=== PATIENT | male | born 1955 | race Caucasian/White ===

== ENCOUNTER 2020-11-23 00:03 | Emergency (ER) | payer OTHER, SELFPAY ==
[2020-11-23 00:36] VITALS: BP 180/73; BP 186/72; PULSE 74; PULSE 82; RESP 18; TEMP 37.2; O2SAT 96; O2SAT 98; BMI 24.7
[2020-11-23 00:37] VITALS: BP 167/65; PULSE 75; RESP 18; TEMP 37.2; O2SAT 97
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
[2020-11-23 00:55] LABS: Glucose, Whole Blood 226 mg/dL (60-115)
[2020-11-23 00:55] LABS: Glucose Urine UA 250 MG/DL (NEG); Leukocyte Esterase Urine NEG (NEG); Nitrite Urine NEG (NEG); Specific Gravity - Urine 1.015 (1.005-1.025); Urine Blood TRACE (NEG); Urine Ketones NEG (NEG); Urine Protein 2+ MG/DL (NEG-TRACE)
[2020-11-23 00:58] LABS: Appearance Urine CLEAR; Color Urine YELLOW
[2020-11-23 01:10] LABS: Hyaline Casts Urine 0-2 /LPF; Mucus Urine 1+ /LPF; RBC Urine 0-2 /HPF (0); Squamous Epithelial Cell Urine 1+ /LPF; WBC Urine 0-2 /HPF (0-4)
[2020-11-23 01:31] VITALS: BP 166/66; PULSE 75; RESP 17; TEMP 36.9; O2SAT 98
[2020-11-23] MEDS: Tamsulosin HCL 0.4 MG CAPSULE PO (01:32)
== END 2020-11-23 01:35 | disposition home or self-care (01) ==
PROVIDERS: Emergency Provider Internal Medicine
DX: N40.0 Benign prostatic hyperplasia without lower urinary tract symptoms (principal); E11.65 Type 2 diabetes mellitus with hyperglycemia; Z79.4 Long term (current) use of insulin; E11.22 Type 2 diabetes mellitus with diabetic chronic kidney disease; I12.9 Hypertensive chronic kidney disease with stage 1 through stage 4 chronic kidney disease, or unspecified chronic kidney disease; N18.9 Chronic kidney disease, unspecified; F17.200 Nicotine dependence, unspecified, uncomplicated
CPT/HCPCS: 81001; 82947; 99283; 99284

== ENCOUNTER → 2020-11-27 08:42 | Outpatient (BNVA) | payer OTHER, SELFPAY | PROVIDERS: Visit Provider Nurse Practitioner Gerontology | DX: Z76.89 Persons encountering health services in other specified circumstances (principal) | CPT/HCPCS: Q3014 ==

== ENCOUNTER → 2021-01-03 08:40 | Outpatient (BNVA) | payer OTHER, SELFPAY | PROVIDERS: Visit Provider Nurse Practitioner Gerontology | CPT/HCPCS: Q3014 ==

== ENCOUNTER 2021-01-28 13:27 | Outpatient (REF) | payer OTHER, SELFPAY | END 2021-01-28 13:28 | disposition home or self-care (01) | LOC: HO.LAB 13:27 | PROVIDERS: Visit Provider Internal Medicine | DX: Z20.822 Contact with and (suspected) exposure to COVID-19 (principal) | CPT/HCPCS: 36415; C9803; U0003; U0005 ==

== ENCOUNTER → 2021-02-14 08:11 | Outpatient (BNVA) | payer OTHER, SELFPAY | PROVIDERS: Visit Provider Nurse Practitioner Gerontology | DX: E11.29 Type 2 diabetes mellitus with other diabetic kidney complication (principal); R80.9 Proteinuria, unspecified; I10 Essential (primary) hypertension; E78.5 Hyperlipidemia, unspecified; E78.1 Pure hyperglyceridemia | CPT/HCPCS: Q3014 ==

== ENCOUNTER 2021-05-23 13:12 | Outpatient (REF) | payer OTHER, SELFPAY | END 2021-05-23 13:13 | disposition home or self-care (01) | LOC: HO.LAB 13:12 | PROVIDERS: Visit Provider Internal Medicine | DX: Z20.822 Contact with and (suspected) exposure to COVID-19 (principal) | CPT/HCPCS: C9803; U0003; U0005 ==